=== PATIENT | female | born 1965 | race Caucasian/White ===

== ENCOUNTER 2018-09-03 12:51 | Emergency (ER) | payer OTHER ==
[~2018-09-03] VITALS: Ht 165.1 cm; Wt 61.8 kg
[2018-09-03 13:40] VITALS: BP 144/72
[2018-09-03] MEDS ORDERED: HYDROcodone/APAP 5/325 TABLET PO ONE (14:30)
[2018-09-03] MEDS ORDERED: HYDROcodone/APAP 5/325 TABLET ONE (14:30)
[2018-09-03] MEDS ORDERED: ONDANSETRON ODT 4 MG PO ONE (14:30)
[2018-09-03] MEDS ORDERED: ONDANSETRON ODT 4 MG ONE (14:30)
--- NOTE | 2018-09-03 14:38 | NUR ---
PT MEDICATED PER SEP. PA TO BEDSIDE. PT BEING TAKEN TO CT
[2018-09-03] MEDS ORDERED: DIPH,PERTUSS(ACELL),TET VAC/PF 0.5 ML IM-VACC ONE ×2 (14:57→15:00)
--- NOTE | 2018-09-03 15:36 | NUR ---
TASK RN: Patient/Caregiver given discharge instructions and they have confirmed that they understand the instructions. Patient ambulatory with steady gait.
== END 2018-09-03 15:38 | disposition home or self-care (01) ==
LOC: ED 15:35
DX: S16.1XXA Strain of muscle, fascia and tendon at neck level, initial encounter (principal); S43.491A Other sprain of right shoulder joint, initial encounter; S20.211A Contusion of right front wall of thorax, initial encounter; S50.11XA Contusion of right forearm, initial encounter; S00.531A Contusion of lip, initial encounter; Z88.2 Allergy status to sulfonamides; W19.XXXA Unspecified fall, initial encounter; Y93.89 Activity, other specified; Y92.009 Unspecified place in unspecified non-institutional (private) residence as the place of occurrence of the external cause; Y99.8 Other external cause status
CPT/HCPCS: 70450; 71101; 72125; 73030; 73080; 73090; 99284; Q0162

== ENCOUNTER 2021-02-07 20:37 | Emergency (ER) | payer OTHER ==
[~2021-02-07] VITALS: Ht 160 cm; Wt 65.3 kg
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
[2021-02-07] MEDS ORDERED: SODIUM CHLORIDE FLUSH 10ML SYR IVF ONE (21:00)
[2021-02-07] MEDS ORDERED: HYDR200T72 PO (21:01)
[2021-02-07] MEDS ORDERED: SERTRALINE (21:01)
[2021-02-07] MEDS ORDERED: LANSOPRAZOLE (21:01)
[2021-02-07] MEDS ORDERED: ENBREL (21:01)
[2021-02-07] MEDS ORDERED: MOBIC (21:01)
--- NOTE | 2021-02-07 21:30 | NUR ---
CALLED CT AND ASKED TECH TO PRIORITIZE THE CT SCANS FOR THIS PT
--- NOTE | 2021-02-07 22:00 | NUR ---
PT OFFERED MEDICATION FOR RUFFIN AND PT DECLINED. CALL LIGHT PROVIDED TO PT AND INSTRUCTED HOW TO USE IT. INSTRUCTED TO USE CALL LIGHT TO REACH ME WITH REQUESTS.
--- NOTE | 2021-02-07 22:13 | NUR ---
PT RESTING ON GURNEY WITH FRIEND AT BEDSIDE. NO CHANGES IN NEURO STATUS
--- NOTE | 2021-02-07 23:05 | NUR ---
CALLED CT AND ASKED FOR PRIORITY READS OF THE CT SCANS FOR THIS PT
[2021-02-07] MEDS ORDERED: ACETAMINOPHEN 500 MG TABLET ONE (23:24)
--- NOTE | 2021-02-07 23:32 | NUR ---
PT FRIEND WALKED TO NURSES STATION AND REQUESTS TYLENOL FOR PT HEADACHE. I INFORMED DR VICENTE WHO STATES TO GIVE 1G OF TYLENOL. APROX 2 MIN LATER, I RETURNED WITH TYLENOL AND FRIENDS AT BEDSIDE SAID "WE ALREADY TOOK CARE OF HER, ITS ONLY BEEN 45 MINUTES" FRIENDS GAVE PT UNKNOWN DRUG FROM THEIR BAGS. I REPLIED THAT IT HAD BEEN APPROX 2 MIN, NOT 45 AND THE FRIENDS SAID THAT THEY HAD REQUESTED PAIN MEDS FROM A PASSER-BY OUTSIDE THE ROOM. I INFORMED THEM THAT I DIDNT RECIEVE THE MESSAGE, I OFFERED PAIN MEDS PREVIOUSLY THAT WERE DECLINED AND I ALSO INFORMED THEM FOR A SECOND TIME THAT THE CALL LIGHT IS THE PREFERRED METHOD OF COMMUNICATION WITH ME. PT FRIENDS DISSATISFIED WITH MY RESONSE. PT FRIENDS VERY RUDE TO ME EVEN THOUGH I HAD ADDRESSED ALL THE PT'S NEEDS. UPDATED ON POC AND THEN I LEFT THE ROOM.
--- NOTE | 2021-02-07 23:50 | NUR ---
DR VICENTE AT BEDSIDE FOR RECHECK
[2021-02-07] MEDS ORDERED: METOCLOPRAMIDE 5 MG/ML, 2ML ONE (23:55)
[2021-02-07] MEDS ORDERED: DIPHENHYDRAMINE 50 MG/ML, 1ML ONE (23:55)
[2021-02-07 23:59] VITALS: BP 126/84
[2021-02-08] MEDS ORDERED: METOCLOPRAMIDE 5 MG/ML, 2ML IVPush ONE
[2021-02-08] MEDS ORDERED: DIPHENHYDRAMINE 50 MG/ML, 1ML IVPush ONE
== END 2021-02-08 00:54 | disposition home or self-care (01) ==
LOC: ED 20:44
DX: S06.0X0A Concussion without loss of consciousness, initial encounter (principal); M54.2 Cervicalgia; R07.89 Other chest pain; X58.XXXA Exposure to other specified factors, initial encounter; Y93.89 Activity, other specified; Y92.830 Public park as the place of occurrence of the external cause; Y99.8 Other external cause status
CPT/HCPCS: 70450; 70486; 71045; 72125; 96374; 96375; 99285; J1200; J2765